=== PATIENT | male | born 1955 | race Caucasian/White ===

== ENCOUNTER 2019-04-21 10:13 | Emergency (ER) | payer OTHER ==
--- NOTE | 2019-04-21 10:42 | ER Document Report ---
ED Medical Screen (RME) - General Chief Complaint: Weakness Stated Complaint: WEAKNESS Time Seen by Provider: 04/21/19 10:38 Mode of Arrival: Wheelchair Information source: Patient Notes: 64-year-old male presents to ED for complaint of weakness for a couple weeks. He states he also has very low blood pressure today he states he is on blood pressure medicine Medicine is on any took it this morning and then became weaker than his been being and checked his blood pressure and it was very low with his primary care doctor they told him it was too low and sent him to the emergency room with the blood pressure machine his blood pressure was 182/62 and when I took it manually was 82/56 pulse is 84 respirations 18 temp 97.6. He does state he feels a little weak and lightheaded. He does not smoke drinks 2-3 shots a day does not use any drugs works for the [employer] and lives with his family right now he is in this area on a job and is supposed to fly back next week. He is very concerned. He does not have a local doctor. I have greeted and performed a rapid initial assessment of this patient. A comprehensive ED assessment and evaluation of the patient, analysis of test results and completion of medical decision making process will be conducted by an additional ED providers. Physical Exam - Vital signs Vitals: Temp Pulse Resp BP Pulse Ox 97.6 F 84 18 92/64 L 98 04/21/19 10:04/21/19 10:04/21/19 10:04/21/19 10:04/21/19 10:29 Course - Vital Signs Vital signs: Temp Pulse Resp BP Pulse Ox 97.6 F 84 18 92/64 L 98 04/21/19 10:04/21/19 10:04/21/19 10:04/21/19 10:04/21/19 10:29
[2019-04-21] MEDS: NORMAL SALINE 1000 ML 1,000 ML IV PRN ×2 (11:10→12:41)
[2019-04-21 11:29] LABS: HEMATOCRIT 41.3 % (37.9-51.0); HEMOGLOBIN 14.7 g/dL (13.5-17.0); MEAN CORPUSCULAR HEMOGLOBIN 33.5 pg (27.0-33.4); MEAN CORPUSCULAR HGB CONC 35.6 g/dL (32.0-36.0); MEAN CORPUSCULAR VOLUME 94 fl (80-97); RED BLOOD COUNT 4.38 10^6/uL (4.35-5.55); RED CELL DISTRIBUTION WIDTH 12.8 % (11.5-14.0)
[2019-04-21 11:42] LABS: ALBUMIN 3.6 g/dL (3.5-5.0); ALKALINE PHOSPHATASE 70 U/L (38-126); ANION GAP 12 (5-19); ASPARTATE AMINO TRANSFERASE 72 U/L (17-59); BILIRUBIN,DIRECT 0.7 mg/dL (0.0-0.4); BILIRUBIN,TOTAL 2.2 mg/dL (0.2-1.3); BLOOD UREA NITROGEN 40 mg/dL (7-20); CALCIUM 9.2 mg/dL (8.4-10.2); CARBON DIOXIDE 28 mmol/L (22-30); CHLORIDE 92 mmol/L (98-107); GLUCOSE 114 mg/dL (75-110); POTASSIUM 3.2 mmol/L (3.6-5.0); TOTAL PROTEIN 6.6 g/dL (6.3-8.2)
[2019-04-21 12:12] LABS: ABSOLUTE LYMPHOCYTES# (MANUAL) 0.3 10^3/uL (0.5-4.7); ABSOLUTE MONOCYTES # (MANUAL) 1.7 10^3/uL (0.1-1.4); BASOPHILS % (MANUAL) 0 % (0-2); EOSINOPHILS % (MANUAL) 0 % (0-6); LYMPHOCYTES % (MANUAL) 3 % (13-45); MONOCYTES % (MANUAL) 19 % (3-13); SEGMENTED NEUTROPHILS % (MAN) 78 % (42-78); TOTAL CELLS COUNTED 100; TOXIC GRANULATION 1+
[2019-04-21 12:13] LABS: TOXIC VACUOLATION PRESENT
[2019-04-21 12:28] LABS: RBC MORPHOLOGY COMMENT NORMO-CYTIC/CHROMIC
[2019-04-21 12:51] LABS: PLATELET COMMENT DECREASED; PLATELET COUNT 47 10^3/uL (150-450); WHITE BLOOD COUNT 8.7 10^3/uL (4.0-10.5)
[2019-04-21 15:09] LABS: APPEARANCE,URINE CLEAR; BILIRUBIN,URINE NEGATIVE (NEGATIVE); COLOR,URINE YELLOW; GLUCOSE, URINE NEGATIVE (NEGATIVE); KETONES,URINE NEGATIVE (NEGATIVE); PROTEIN,URINE 30 mg/dL (NEGATIVE); URINE SPECIFIC GRAVITY 1.015
[2019-04-21] MEDS ORDERED: POTASSIUM CHLORIDE 20 MEQ PACKET PO ONE (15:32)
--- NOTE | 2019-04-21 15:59 | ER Document Report ---
ED Dizziness/Weakness - General Chief Complaint: General Weakness Stated Complaint: WEAKNESS Time Seen by Provider: 04/21/19 10:38 Mode of Arrival: Wheelchair Notes: Patient is a 64-year-old male who presents the emergency department with a chief complaint of weakness. Patient states that he has been feeling weak for the past couple of days. He ended up taking his blood pressure and it was low at home. He is visiting from [place]. His current medications are lisinopril/hydrochlorothiazide and amlodipine. He states that he usually takes his medications every day, but sometimes misses some days. About 5 days ago, the patient had some diarrhea. It has slowed down. States that he has not been eating and drinking like he normally should. Patient admits to drinking 2-3 shots a day to help him go to sleep. - Related Data Allergies/Adverse Reactions: No Known Allergies Allergy (Verified 04/21/19 10:41) Home Medications: Lisinopril @ 0700 04/21/19. Amlodipine @ 0700 04/21/19 Past Medical History - General Information source: Patient - Social History Smoking Status: Never Smoker Frequency of alcohol use: Heavy Drug Abuse: None Family History: Reviewed & Not Pertinent Patient has suicidal ideation: No Patient has homicidal ideation: No - Past Medical History Cardiac Medical History: Reports: Hx Hypertension Review of Systems - Review of Systems Notes: REVIEW OF SYSTEMS: CONSTITUTIONAL : Denies recent illness. Denies recent unintentional weight loss. Denies fever, chills, or sweats. EENT: Denies eye, ear, throat, or mouth pain, discharge, or symptoms. Denies nasal or sinus congestion. CARDIOVASCULAR: Denies chest pain. RESPIRATORY: Denies shortness of breath, cough, congestion, difficulty breathing, or wheezing. GASTROINTESTINAL: Denies nausea, vomiting, and diarrhea. Denies abdominal pain. Denies constipation. GENITOURINARY: Denies difficulty urinating, burning, blood in urine, urgency or frequency. MUSCULOSKELETAL: Denies neck and back pain. Denies joint pain or swelling. SKIN: Denies rash, itchiness, or lesions HEMATOLOGIC : Denies easy bruising or bleeding. LYMPHATIC: Denies swollen, painful, enlarged glands. NEUROLOGICAL: See HPI. PSYCHIATRIC: Denies stress, anxiety, alteration in sleep patterns, or depression. All other systems reviewed and negative. Physical Exam - Vital signs Vitals: Temp Pulse Resp BP Pulse Ox 97.6 F 84 18 92/64 L 98 04/21/19 10:29 04/21/19 10:29 04/21/19 10:29 04/21/19 10:04/21/19 10:29 - Notes Notes: PHYSICAL EXAMINATION: GENERAL: Appears well, healthy, well-nourished, no acute distress. HEAD: Normocephalic, atraumatic. EYES: PERRL, conjunctiva normal, all extraocular movements intact, sclera nonicteric ENT: Moist mucous membranes. NECK: Supple, no noticeable swelling, redness, rash. Normal range of motion. LUNGS: Equal breath sounds bilaterally and clear to auscultation. No wheezes rales or rhonchi. CARDIOVASCULAR: S1-S2, regular rate, regular rhythm. Radial pulses 2+, normal. ABDOMEN: Normoactive bowel sounds. Soft, nontender, no guarding, no rebound tenderness, and no masses palpated. EXTREMITIES: Normal strength and range of motion, no pitting or edema. No cyanosis. NEUROLOGICAL: Moves all extremities upon command. Strength 5/5 in all ex tremities. PSYCH: Normal mood, normal affect. SKIN: Warm, dry. No rash, lesions, ulcerations noted. Normal skin turgor. Course - Re-evaluation Re-evalutation: 04/21/19 Hematology does not show any leukocytosis or anemia noted. Patient does have some electrolyte disturbances with a sodium of 132 and a potassium of 3.2. His liver enzymes and bilirubin are all up. This is most likely due to the patient's alcohol use. He admittedly denies abdominal pain. His BNP is normal and his lipase is also normal. Patient will receive potassium. He has already received 2 L of fluids. His blood pressure has improved since his initial visit. Will redraw labs and reassess. States he feels a little better. 04/21/19 Patient's electrolytes have somewhat improved. I suspect the patient has chronic hyponatremia due to his alcohol use. I discussed this with him. He will follow up with his PCM in [place]. His blood pressure has remained stable. Follow up precautions were given. All questions were answered. He was appreciative of his care. Patient is stable for discharge. - Vital Signs Vital signs: Temp Pulse Resp BP Pulse Ox 97.6 F 84 26 H 116/78 96 04/21/19 10:29 04/21/19 10:29 04/21/19 19:11 04/21/19 19:11 04/21/19 19:11 - Laboratory Result Diagrams: 04/21/19 11:09 04/21/19 17:52 Laboratory results interpreted by me: 04/21/19 04/21/19 04/21/19 11:09 11:09 13:47 MCH 33.5 H Plt Count 47 L Lymphocytes % (Manual) 3 L Monocytes % (Manual) 19 H Abs Lymphs (Manual) 0.3 L Abs Monocytes (Manual) 1.7 H Sodium 132.4 L Potassium 3.2 L Chloride 92 L BUN 40 H Glucose 114 H Calcium Total Bilirubin 2.2 H Direct Bilirubin 0.7 H AST 72 H ALT 72 H Total Protein Albumin Urine Protein 30 H Urine Blood MODERATE H Urine Urobilinogen 4.0 H 04/21/19 17:52 MCH Plt Count Lymphocytes % (Manual) Monocytes % (Manual) Abs Lymphs (Manual) Abs Monocytes (Manual) Sodium 132.4 L Potassium Chloride 97 L BUN 28 H Glucose Calcium 8.3 L Total Bilirubin 1.9 H Direct Bilirubin AST 60 H ALT 63 H Total Protein 5.5 L Albumin 2.9 L Urine Protein Urine Blood Urine Urobilinogen Discharge - Discharge Clinical Impression: Weakness, Hyponatremia, Low serum potassium level, Dehydration Hypotension Qualifiers: Hypotension type: other hypotension type Qualified Code(s): I95.89 - Other hypotension Condition: Stable Disposition: HOME, SELF-CARE Additional Instructions: You were seen today in the emergency department for weakness. You were most likely weak due to dehydration and a low blood pressure. Please make sure that you check your blood pressure at least every other day. If your blood pressure is too low, do not take your medication. You received IV fluids here in the emergency department. He is follow-up with your primary care provider when you return home. Forms: Return to Work
[2019-04-21 17:58] VITALS: BP 116/78
[2019-04-21 18:50] LABS: ALBUMIN 2.9 g/dL (3.5-5.0); ALKALINE PHOSPHATASE 56 U/L (38-126); ANION GAP 7 (5-19); ASPARTATE AMINO TRANSFERASE 60 U/L (17-59); BILIRUBIN,DIRECT 0.3 mg/dL (0.0-0.4); BILIRUBIN,TOTAL 1.9 mg/dL (0.2-1.3); BLOOD UREA NITROGEN 28 mg/dL (7-20); CALCIUM 8.3 mg/dL (8.4-10.2); CARBON DIOXIDE 28 mmol/L (22-30); CHLORIDE 97 mmol/L (98-107); GLUCOSE 98 mg/dL (75-110); POTASSIUM 3.9 mmol/L (3.6-5.0); TOTAL PROTEIN 5.5 g/dL (6.3-8.2)
--- NOTE | 2019-04-21 20:22 | EKG REPORT ---
SEVERITY:- ABNORMAL ECG - SINUS RHYTHM NONSPECIFIC INTRAVENTRICULAR CONDUCTION DELAY : Confirmed by: Kavin Desouza MD 21-Apr-2019 20:21:53
== END 2019-04-21 19:21 | disposition home or self-care (01) ==
LOC: ER 10:13
DX: R53.1 Weakness (principal); E87.1 Hypo-osmolality and hyponatremia; E86.0 Dehydration; E87.6 Hypokalemia; I95.89 Other hypotension; I10 Essential (primary) hypertension
CPT/HCPCS: 93005; 36415; 83690; 85025; 87070; 80053; 81001; 83880; 93010; J7030; J3490; 96360; 96361; 99285